=== PATIENT | female | born 1980 | race Caucasian/White ===

== ENCOUNTER 2020-03-14 10:08 | Outpatient (CLI) | payer OTHER, SELFPAY ==
--- NOTE | ~2020-03-14 | XR_ITS ---
EXAMINATION: XR foot RT min 3V DATE: 03/14/2020 10:33 INDICATION: Right foot injury and pain. TECHNIQUE: 4 views of right foot were obtained. COMPARISON: None. FINDINGS: Bone alignment is normal. No fracture. There is a benign bone island in tibia. 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 There is mild osteo arthritis of first metatarsophalangeal joint. IMPRESSION: 1. Mild osteoarthritis of first metatarsophalangeal joint. Reviewed, dictated and finalized at location A.
== END 2020-03-14 10:09 | disposition home or self-care (01) ==
PROVIDERS: PCP Family Medicine; Visit Provider Nurse Practitioner Family
DX: S99.929A Unspecified injury of unspecified foot, initial encounter (principal); X58.XXXA Exposure to other specified factors, initial encounter; M19.071 Primary osteoarthritis, right ankle and foot
CPT/HCPCS: 73630

== ENCOUNTER 2024-07-13 06:28 | Day surgery (SDC) | payer OTHER, SELFPAY ==
[2024-07-13] VITALS (10 sets, daily range): BP systolic 108–124; BP diastolic 51–75; PULSE 62–93; RESP 12–20; TEMP 36.5–36.9; O2SAT 93–100
--- NOTE | ~2024-07-13 | US_ITS ---
EXAMINATION: US pelvic complete w TV DATE: 07/13/2024 10:18 INDICATION: Right lower quadrant abdominal pain TECHNIQUE: Multiple transabdominal and endovaginal sonographic images of the pelvis were obtained. COMPARISON: None. FINDINGS: The uterus measures 7.0 x 2.7 x 4.4 cm. The endometrial complex measures 5 mm in thickness. The righ t ovary measures 2.4 x 2.0 x 1.6 cm exclusive of a 4.5 x 2.8 x 3.5 cm cyst arising from the periphery of the right ovary with ovarian origin better appreciated on the prior CT. There is a small amount o f hypoechoic material without evident internal vascular flow on color Doppler along the periphery of the cyst which is also without enhancement on the prior CT suggesting debris or potentially clot in t he setting of a hemorrhagic cyst. The left ovary measures 2.1 x 1.4 x 1.0 cm. There is an additional 8 mm anechoic follicle at the left ovary. There is normal vascular flow in the ovaries. There is mini mal amount of likely physiologic free fluid in the pelvis. IMPRESSION: 1. 4.5 cm right ovarian cyst with small amount of hypoechoic material along the periphery of the cyst which could be hemorrhagic. Recommend 6-12 week follow-up ultrasound. Reviewed, dictated and finalized at location A. IMPRESSION: 1. 4.5 cm right ovarian cyst with small amount of hypoechoic material along the periphery of the cyst which could be hemorrhagic. Recommend 6-12 week follow-u p ultrasound.
--- NOTE | ~2024-07-13 | CT_ITS ---
EXAMINATION: CT abdomen pelvis w con DATE: 07/13/2024 08:48 INDICATION: Costovertebral angle pain with nausea and vomiting TECHNIQUE: Computed tomography (CT) of the abdomen and pelvis was performed with 100 mL Omnipaque-350 intravenous contrast. Automated exposure control and iterative reconstruction technique were employe d. The dose-length product was 581.30 mGy-cm. COMPARISON: 07/27/2016 FINDINGS: Mild dependent atelectasis in the bilateral lower lobes, left greater than right. Heart size normal. No pericardial or pleural effusion. Liver, gallbladder, spleen, pancreas and bilateral adrenal glands are normal. Bilateral renal cysts measuring up to 1.3 cm in the right kidney. The gas and fluid-fill ed appendix is dilated to 1.3 cm distal to a calcified appendicolith at the base of the appendix. The re is however no appendiceal wall thickening or surrounding inflammatory stranding to suggest acute a ppendicitis. Bowels are unremarkable. Bladder, anteverted uterus and left adnexa are unremarkable. 4. 0 cm right ovarian cyst. No free intraperitoneal gas or fluid. No pathologically enlarged abdominal o r pelvic lymphadenopathy. Bones are unremarkable. IMPRESSION: 1. No acute intra-abdominal/pelvic process. 2. 4.0 cm right ovarian cyst. 3. Small appendicolith at the base of the appendix which is mildly dilated but without evident wall t hickening or surrounding from trace stranding to suggest acute appendicitis. Reviewed, dictated and finalized at location A. IMPRESSION: 1. No acute intra-abdominal/pelvic process. 2. 4.0 cm right ovarian cyst. 3. Small appendicolith at the base of the appendix which is mildly dilated but without evident wall thickening or surrounding from trace stranding to suggest acute appendicitis.
--- NOTE | 2024-07-13 06:34 | ED.ABDPAIN ---
HPI - Abdominal Pain General Chief Complaint: Abdominal Pain <Carmen Lemus MD - Last Filed: 07/22/24 14:39> Stated Complaint: stomach pain and vomiting <Carmen Lemus MD - Last Filed: 07/22/24 14:39> Time Seen by Provider: 07/13/24 06:31 <Carmen Lemus MD - Last Filed: 07/22/24 14:39> History of Present Illness HPI narrative: last night patient started having nausea vomiting, cannot keep anything down, having pain to her lower abdomen and also to her right flank. No history of kidney stones, had a normal bowel movement earlier today. Chills without fevers. <Carmen Lemus MD - Last Filed: 07/22/24 14:39> 44-year-old female present to the emergency department for evaluation for abdominal pain that started last night patient started having nausea vomiting, cannot keep anything down, having pain to her lower abdomen and also to her right flank. No history of kidney stones, had a normal bowel movement earlier today. Chills without fevers. <Leroy Trevizo MD - Last Filed: 07/13/24 18:15> Related Data Allergies/Adverse Reactions: Allergies Allergy/AdvReac Type Severity Reaction Status Date / Time betamethasone AdvReac shaking, Verified 07/13/24 12:40 [From Celestone] anxious <Carmen Lemus MD - Last Filed: 07/22/24 14:39> Review of Systems Review of Systems: All systems reviewed & are unremarkable except as noted in HPI and below <Carmen Lemus MD - Last Filed: 07/22/24 14:39> [facility] Past Medical History Medical History: Medical History BMI 24.0-24.9, adult <Carmen Lemus MD - Last Filed: 07/22/24 14:39> Social History Social History: Social History Smoking status: Never smoker Second hand tobacco smoke exposure: No Alcohol intake: current Substance use: never Substance use type: does not use <Carmen Lemus MD - Last Filed: 07/22/24 14:39> Exam Narrative: EXAMINATION OF ORGAN SYSTEMS/BODY AREAS: Constitutional: Vital signs per nursing GENERAL: appears quite uncomfortable HEAD: Normal with no signs of head trauma. EYES: EOMI, conjunctiva normal ENT: Hearing grossly intact LUNGS: Nonlabored breathing. HEART: [Regular rate and rhythm] ABD: [Soft], Slight right CVA tenderness, no guarding EXT: Normal range of motion SKIN: [No rashes or lesions.] NEURO: [Alert and oriented x 3. No gross focal sensory or strength deficits.] PSYCH: Normal affect <Carmen Lemus MD - Last Filed: 07/22/24 14:39> Course Reevaluation(s) Reevaluation #1: CT scan did show evidence of an appendicolith with a dilated appendix. Also showed evidence of a right-sided ovarian cyst. Ultrasound was ordered and showed no evidence of air and torsion. I discussed the case with surgery due to the concern for early appendicitis and patient was taken to the operating room by Dr. Dinh. Prior to going to the OR patient was started on IV Zosyn. Patient and family are comfortable with plan for surgical evaluation. All questions concerns were addressed. <Leroy Trevizo MD - Last Filed: 07/13/24 18:15> Vital Signs Vital signs: Vital Signs Temperature 98.0 F 07/13/24 06:45 Pulse Rate 62 07/13/24 06:45 Respiratory Rate 12 07/13/24 06:45 Blood Pressure 121/75 07/13/24 06:45 Pulse Oximetry 100 07/13/24 06:45 Oxygen Delivery Room Air 07/13/24 06:45 Temperature 97.7 F 07/13/24 13:56 Pulse Rate 90 07/13/24 15:45 Respiratory Rate 20 07/13/24 15:45 Blood Pressure 120/65 07/13/24 15:45 Pulse Oximetry 93 07/13/24 14:40 Oxygen Delivery Room Air 07/13/24 15:45 Oxygen Flow Rate 10 07/13/24 14:10 <Carmen Lemus MD - Last Filed: 07/22/24 14:39> Vital Signs Temperature 98.0 F 07/13/24 06:45 Pulse Rate 62 07/13/24 06:45 Respiratory Rate 12 07/13/24 06:45 Blood Pressure 121/75 07/13/24 06:45 Puls
[2024-07-13] MEDS: ONDANSETRON INJ 4 MG/2 ML VIAL IV PUSH ×2 (06:43→10:13)
[2024-07-13] MEDS: MORPHINE SULFATE (*CRX) 4 MG/ML INJ IV PUSH (06:44)
[2024-07-13] MEDS: FAMOTIDINE 20 MG/2 ML VIAL IV PUSH (06:44)
[2024-07-13] MEDS: LACTATED RINGERS 1,000 ML 999 ML IV CONT (06:44)
[2024-07-13 07:06] LABS: Basophils Percent Auto 0.1 % (0.2-1.2); Hematocrit 44.5 % (37.0-47.0); Hemoglobin 15.7 g/dL (12.0-15.0); Immature Granulocyte Absolute 0.09 K/mm3 (0.00-0.031); Immature Granulocyte Percent A 0.5 % (0-0.5); Lymphocytes Absolute Auto 0.79 K/mm3 (0.9-3.2); Lymphocytes Percent Auto 4.6 % (18.3-44.2); Mean Corpuscular HGB Conc 35.3 g/dl (32-36); Mean Corpuscular Volume 90.8 fl (80-100); Mean Platelet Volume 9.7 fl (7.4-10.4); Monocytes Absolute Auto 0.3 K/mm3 (0.1-0.6); Monocytes Percent Auto 1.5 % (2.6-8.5); Neutrophils Percent Auto 93.3 % (45.5-73.1); Platelet Count Result 298 k/mm3 (150-375); Red Cell Distribution Width 11.8 % (11.5-14.5); White Blood Count 17.2 K/mm3 (4.5-10.0)
[2024-07-13 07:14] LABS: BEDSIDEPREGUCG Negative (Negative)
[2024-07-13 07:16] LABS: Alanine Aminotransferase 26 U/L (6-35); Albumin Level 4.9 g/dL (3.5-5.1); Alkaline Phosphatase 107 U/L (38-126); Anion Gap 11 mmol/L (4-12); Aspartate Amino Transferase 23 U/L (14-36); Bilirubin,Total 0.4 mg/dL (0.2-1.3); Blood Urea Nitrogen 12 mg/dL (7-17); Calcium 9.6 mg/dL (8.4-10.2); Carbon Dioxide 22 mmol/L (22-30); Chloride 103 mmol/L (98-107); Estimated CRCL calculation 109 ml/min; Estimated Glomerular Filt Rate > 60; Glucose 145 mg/dL (65-110); Lipase 82 U/L (23-300); Potassium 3.8 mmol/L (3.4-5.0); Sodium 136 mmol/L (137-145)
[2024-07-13 07:24] LABS: Add Urine Microscopic? YES; Appearance Urine Cloudy (Clear); Bacteria Urine 1+ /hpf; Bilirubin Urine Negative (Negative); Blood Urine 1+ (Negative); Color Urine Dark Yellow (Yellow); Glucose Urine UA Negative (Negative); Ketones Urine 3+ mg/dL (Negative); Leukocyte Esterase Ur 2+ LEU/UL (Negative); Need Manual Microscopic Reviewed; Nitrate Urine Negative (Negative); Non Pathogenic Casts 0-2; Protein Urine 1+ mg/dL (Negative); Specific Grav Ur 1.029 (1.001-1.035); Squamous Epithelial Cell Urine Few /hpf (Few); WBC Urine 21-50 /hpf (0-3); pH Urine 7.5 (5.0-9.0)
[2024-07-13] MEDS: HYDROmorphone HCL INJ (*CRX) 1 MG/ML SYR 0.5 MG IV PUSH (10:14)
[2024-07-13] MEDS: PIPERACILLN/TAZ 3.375GM/NS50ML 3.375 GM/50 ML BAG IVPB (11:46)
--- NOTE | 2024-07-13 11:46 | PM.SD2 ---
Same Day Admit/Disch: HPI History of Present Illness Chief complaint: stomach pain and vomiting Narrative: Elizabeth Rosario is a 44 year old female who started having periumbilical pain in the afternoon yesterday. This was pretty uncomfortable, she took some ibuprofen and laid down, falling asleep. When she awakened, the pain was much worse and had moved mostly to the right lower quadrant. She experienced several episodes of vomiting. She could not get comfortable and early this morning she came to the emergency room. She was noted to have considerable pain and tenderness in both lower quadrants of the abdomen. Her white blood cell count was 17,200. She had a CT scan of the abdomen and pelvis that showed an appendicolith and a dilated appendix to 13 mm but no wall thickening or periappendiceal stranding. She was also noted to have a large right ovarian cyst about 4 cm in size. Subsequent pelvic ultrasound showed this to be a 4.5 cm ovarian cyst with a small amount of tissue around the periphery. It is either a physiologic cyst or a hemorrhagic cyst. Patient tells me she is having her menses now. She rarely has any discomfort associated with menstruation. She was seen in the emergency room regarding her right lower quadrant pain and abnormal CT scan. She is still having lower abdominal pain mostly in the right lower quadrant. She is nauseated but does not feel that she will be vomiting. Analgesics have only been partially helpful in relieving her pain. ON LICENSE OF [facility] Past Medical History Medical History BMI 24.0-24.9, adult Social History Social History Smoking status: Never smoker Second hand tobacco smoke exposure: No Alcohol intake: current Substance use: never Substance use type: does not use Same Day Admit/Disch: Med Pre-admit Medications Home Medications Medication Instructions Recorded Confirmed Type ketorolac 10 mg tablet 10 mg PO Q6H 4 days #16 tabs 07/13/24 Rx oxycodone-acetaminophen 5 mg-325 0.5 - 1 tablet PO Q6H PRN pain #10 07/13/24 Rx mg tablet tabs Review of Systems Review of Systems All systems reviewed & are unremarkable except as noted in HPI and below (HPI and those items noted below) Constitutional Constitutional: Denies chills and Denies fever(s) Cardiovascular Cardiovascular: Denies chest pain, Denies diaphoresis, Denies dyspnea and Denies paroxysmal nocturnal dyspnea Respiratory Respiratory: Denies chest congestion, Denies cough and Denies dyspnea Integumentary/Breasts Skin/Breast: Denies lesions and Denies rash Exam Const: General: cooperative, no acute distress, alert, awake, ill appearing and tired appearing; No comfortable Orientation/consciousness: patient oriented x3 and No confusion HENMT: Head: normocephalic and atraumatic Mouth: Yes Normal oral and palatal mucosa present Eyes: Conjunctivae: conjunctivae normal Pupils: Equal, round and reactive pupils present EOM: EOMs intact bilaterally Neck: Neck: normal visual inspection, no lymphadenopathy and nontender Resp: Effort & Inspection: normal respiratory effort Auscultation: clear to auscultation bilaterally Cardio: Rate: regular rate Rhythm: regular rhythm Heart sounds: no gallops, no murmurs and no rubs GI: Inspection: normal to inspection, non-distended, scaphoid and scar GI Palp: Yes abdominal tenderness (Both lower quadrants, referred pain left to right), Yes Soft to palpation, Yes Tenderness to palpation present (GI), Yes Guarding due to palpation present (GI), No Hepatomegaly present, No Splenomegaly present, No Hernia present and No Palpable mass present Skin: Lesions: no lesions Rashes: no rashes Neuro: General: no focal motor deficits and CN's II-XI intact bilaterally Cranial nerves: Yes Equal, round and reactive pupils present, Yes Bilaterally intact EOM present, Yes facial symmetry and Ye
[2024-07-13] MEDS: LACTATED RINGERS 1,000 ML 30 ML IV CONT ×2 (12:05→13:56)
--- NOTE | 2024-07-13 12:10 | WPDHPUPDATE1 ---
History and Physical Update Update Date/Time: 07/13/24 12:10 History and Physical has been reviewed, including an updated exam of the patient. There are NO changes in the patient's condition. Risks, benefits, and alternatives have been discussed and questions answered. Patient agrees to proceed with procedure.
--- NOTE | 2024-07-13 12:25 | WPDANESEPPF ---
Anes - Initial Pre Proc Eval Procedure: Operation Date: 07/13/24 13:00 Proposed Procedures p Laparoscopic Appendectomy - Kamran Dinh MD Date/Time: 07/13/24 12:25 Surgeon: Kamran Dinh MD Pre Op Diagnosis: stomach pain and vomiting Patient Data Age: 44 Gender: F Height: 1.65 m Weight: 72.72 kg Last Vital Signs Temp 98.3 F 07/13/24 11:09 Pulse 71 07/13/24 11:09 Resp 16 07/13/24 11:09 BP 119/62 07/13/24 11:09 Pulse Ox 99 07/13/24 11:09 O2 Del Method Room Air 07/13/24 06:45 Allergies Allergy/AdvReac Type Severity Reaction Status Date / Time betamethasone AdvReac shaking, Verified 07/13/24 11:49 [From Celestone] anxious Home Medications Medication Instructions Recorded Confirmed Type ketorolac 10 mg tablet 10 mg PO Q6H 4 days #16 tabs 07/13/24 Rx oxycodone-acetaminophen 5 mg-325 0.5 - 1 tablet PO Q6H PRN pain #10 07/13/24 Rx mg tablet tabs Laboratory Tests 07/13/24 07/13/24 07/13/24 06:39 07:07 07:10 WBC 17.2 H K/mm3 (4.5-10.0) RBC 4.90 M/mm3 (4.2-5.4) Hgb 15.7 H g/dL (12.0-15.0) Hct 44.5 % (37.0-47.0) MCV 90.8 fl (80-100) MCH 32.0 pg (26-34) MCHC 35.3 g/dl (32-36) RDW 11.8 % (11.5-14.5) Plt Count 298 k/mm3 (150-375) MPV 9.7 fl (7.4-10.4) Immature Gran % (Auto) 0.5 % (0-0.5) Neut % (Auto) 93.3 H % (45.5-73.1) Lymph % (Auto) 4.6 L % (18.3-44.2) [place] % (Auto) 1.5 L % (2.6-8.5) Eos % (Auto) 0.0 % (0-4.4) Baso % (Auto) 0.1 L % (0.2-1.2) Lymph # (Auto) 0.79 L K/mm3 (0.9-3.2) [place] # (Auto) 0.3 K/mm3 (0.1-0.6) Eos # (Auto) 0.0 K/mm3 (0-0.3) Baso # (Auto) 0.0 K/mm3 (0.0-0.1) Abs Immat Gran (auto) 0.09 H K/mm3 (0.00-0.031) Absolute Neuts (auto) 16.0 H K/mm3 (1.3-6.7) Absolute Nucleated RBC 0.000 K/mm3 (0.0-0.012) Nucleated RBC % 0.0 % (0.0-0.2) Sodium 136 L mmol/L (137-145) Potassium 3.8 mmol/L (3.4-5.0) Chloride 103 mmol/L (98-107) Carbon Dioxide 22 mmol/L (22-30) Anion Gap 11 mmol/L (4-12) BUN 12 mg/dL (7-17) Creatinine 0.50 L mg/dL (0.7-1.0) Estim Creat Clear Calc 109 ml/min Estimated GFR > 60 (59 - ) Glucose 145 H mg/dL (65-110) Calcium 9.6 mg/dL (8.4-10.2) Total Bilirubin 0.4 mg/dL (0.2-1.3) AST 23 U/L (14-36) ALT 26 U/L (6-35) Alkaline Phosphatase 107 U/L (38-126) Total Protein 8.0 g/dL (6.3-8.2) Albumin 4.9 g/dL (3.5-5.1) Lipase 82 U/L (23-300) Urine Color Dark yellow (Yellow) Urine Appearance Cloudy H (Clear) Urine pH 7.5 (5.0-9.0) Ur Specific [place] 1.029 (1.001-1.035) Urine Protein 1+ H mg/dL (Negative) Urine Glucose (UA) Negative mg/dL (Negative) Urine Ketones 3+ H mg/dL (Negative) Ur Blood (Man) 1+ H (Negative) Urine Nitrate Negative (Negative) Urine Bilirubin Negative (Negative) Urine Urobilinogen 1.0 mg/dL (<2.0) Add Ur Microanalysis Reviewed Leukocyte Esterase Rfl 2+ H AMANDA/UL (Negative) Urine RBC 11-20 H /hpf (0-2) Urine WBC 21-50 H /hpf (0-3) Ur Squamous Epith Cells Few /hpf (Few) Urine Bacteria 1+ H /hpf Urine Casts 0-2 POC Urine HCG, Qual Negative (Negative) Patient hx anesthesia problems: none Family hx anesthesia problems: none Results Review: All pre-operative results and documents have been reviewed as part of the pre-operative evaluation. [facility] Past Medical History Medical History (Reviewed 07/13/24 @ 1
[2024-07-13] MEDS: BUPIVACAINE/EPINEPHRINE 0.5% 10 ML VIAL 40 ML INFILTRATE (13:31)
--- NOTE | 2024-07-13 13:52 | P.OP_ITS ---
Procedure Note - Detailed Date of Procedure 07/13/24 Pre-op Diagnosis Acute appendicitis, right ovarian cyst Post-op Diagnosis Other (Gangrenous acute appendicitis, right ovarian cyst) Procedure Performed Laparoscopic appendectomy Surgeon Kamran Dinh MD [employer] Anesthesia General and Local Indications Patient started having abdominal pain yesterday in the late afternoon. This progressed through the night move moved to the right lower quadrant. It was associated nausea and vomiting. She came to the emergency room and was noted to be in quite a bit of pain with right lower quadrant tenderness and guarding. [place] [address]. CT scan of the abdomen pelvis showed an appendicolith at the base of the appendix with a dilated distal appendix of 13 mm. There was minimal inflammatory change. She also had a 4-5 cm right ovarian cyst which was not ruptured and there was no evidence of blood or other fluid in the abdomen. She is felt to have acute appendicitis and is taken to surgery now for laparoscopic appendectomy. Findings Patient did have acute appendicitis in fact the appendix was gangrenous but was not ruptured and there was no abscess. The right ovarian cyst was reviewed and a couple of photographs taken. It did not have any suspicious features and appeared to be consistent with the imaging findings. The left ovary was also reviewed and photographed and appeared normal. Description of Procedure Patient was taken to surgery and induced into general anesthesia. The abdomen is prepped and draped. Trocars were placed in the usual fashion using [employer] optical trocars and a 5 mm camera. Patient was placed in Trendelenburg with the right-side elevated. The appendix was found fairly easily taking just a few inflammatory adhesions off the appendix. The appendix was obviously gangrenous but there were no areas of the appendix that were necrotic or perforated. Appendix was elevated and then careful dissection along with cautery was carried out in the mesoappendix. The mesoappendix and associated vessels were carefully cauterized and divided. The appendiceal artery was thoroughly cauterized and divided. Eventually the base of the appendix was skeletonized. A Vicryl Endoloop was then used and the appendix was ligated at its base. The appendix was then amputated just above the ligature. The mucosa of the appendiceal stump was cauterized. The appendix was placed immediately in an Endo-Catch bag and retrieved through the 10 11 left lower quadrant trocar site. We replaced the 10 11 trocar and then reviewed the areas of dissection. No signs of bleeding or other problems were noted. We then looked in the pelvis and saw the right ovarian cyst which appeared smooth walled and symmetric with clear fluid within the cyst. The cyst was photographed. I then looked at the left tube and ovary. There were a couple of small, physiologic cysts associated but otherwise no findings. We then evacuated CO2 and removed the trocar sleeves. Skin wounds were closed with subcuticular 4-0 Monocryl skin suture. The wounds were dressed with Exofin surgical adhesive. The patient was then awakened and taken to recovery in good condition. Sponge and needle counts were correct x2. Estimated Blood Loss -5 Pathology Yes (Appendix) Complications None Condition Stable Disposition PACU [facility] Billing Surgery - Charge Forward: Surgery Billing (Laparoscopic appendectomy)
[2024-07-13] MEDS: fentaNYL CITRATE INJ (*CRX) 100 MCG/2 ML VIAL 25 MCG IV PUSH ×4 (14:07→14:36)
--- NOTE | 2024-07-13 14:22 | SUR.PHASEI ---
1421: Simple mask removed.
[2024-07-13] MEDS: oxyCODONE HCL (*CRX) 5 MG TAB IR PO (15:01)
== END 2024-07-13 15:50 | disposition home or self-care (01) ==
LOC: ANHED 11:21 → ANHSURGERY 11:43
PROVIDERS: Emergency Provider Emergency Medicine; PCP Family Medicine; Visit Provider Surgery
PROC: 0DTJ4ZZ Resection of Appendix, Percutaneous Endoscopic Approach (ICD-10-PCS; CPT 44970; principal; 2024-07-13 13:00)
DX: K35.31 Acute appendicitis with localized peritonitis and gangrene, without perforation (principal); N83.291 Other ovarian cyst, right side; G89.18 Other acute postprocedural pain; Z79.891 Long term (current) use of opiate analgesic
CPT/HCPCS: 44970; 36415; 74177; 76830; 76856; 80053; 81001; 81025; 83690; 85025; 87086; 87088; 88304; 96361; 96374; 96375; 96376; 99285; A9270; J1100; J1170; J2250; J2270; J2405; J2543; J2704; J3010; J7120; Q9967

== ENCOUNTER 2025-09-03 15:47 | Outpatient (CLI) | payer OTHER, SELFPAY ==
--- NOTE | ~2025-09-03 | MM_ITS ---
EXAMINATION: MM screening vinod BI w kaden HISTORY: Screening TECHNIQUE: Craniocaudal and mediolateral oblique 3-D tomosynthesis images were obtained and synthetic 2-D images were generated. CAD analysis was submitted and interpreted. COMPARISON: No prior mammogram is available for comparison at this institution. BREAST PARENCHYMAL COMPOSITION: Dense: The breasts are heterogeneously dense, which may obscure small masses FINDINGS: There is a subareolar mass of the right breast with scattered periareolar asymmetries. In addition, there is a cluster of punctate indeterminate calcifications in the upper outer quadrant of the right breast, anterior-middle depth. There are focal asymmetries in the upper central left breast, anterior-middle depth. IMPRESSION: 1. Bilateral breast abnormalities described above. 2. Additional mammographic views and possible breast ultrasound are recommended. BI-RADS Category 0: Incomplete: Needs additional imaging evaluation. Reviewed, dictated and finalized at location O. [employer] IMPRESSION: 1. Bilateral breast abnormalities described above. 2. Additional mammographic views and possible breast ultrasound are recommended . BI-RADS Category 0: Incomplete: Needs additional imaging evaluation.
== END 2025-09-03 15:48 | disposition home or self-care (01) ==
PROVIDERS: PCP Family Medicine; Visit Provider Obstetrics & Gynecology
DX: Z12.31 Encounter for screening mammogram for malignant neoplasm of breast (principal); R92.8 Other abnormal and inconclusive findings on diagnostic imaging of breast
CPT/HCPCS: 77063; 77067